=== PATIENT | male | born 1990 | race Caucasian/White ===

== ENCOUNTER 2017-07-16 19:38 | Emergency (ER) | payer BC ==
[2017-07-16] MEDS ORDERED: Diphtheria,Pertussis(Acell),Tetanus Vaccine 0.5 ML Syringe IM ONE (20:43)
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
== END 2017-07-16 21:20 | disposition home or self-care (01) ==
LOC: VM.ED 19:38
DX: S91.331A Puncture wound without foreign body, right foot, initial encounter (principal); Z23 Encounter for immunization; X78.8XXA Intentional self-harm by other sharp object, initial encounter
CPT/HCPCS: 73620-RT; 90471; 90715; 99283